=== PATIENT | male | born 1970 | race Caucasian/White ===

== ENCOUNTER 2024-09-21 18:23 | Emergency (ER) | payer MEDICAID, SELFPAY ==
[2024-09-21 18:24] VITALS: BMI 21.7
== END 2024-09-21 20:34 | disposition left against medical advice (07) ==
PROVIDERS: Emergency Provider Emergency Medicine
DX: Z53.21 Procedure and treatment not carried out due to patient leaving prior to being seen by health care provider (principal)

== ENCOUNTER 2024-10-07 21:38 | Emergency (ER) | payer MEDICAID, SELFPAY ==
[2024-10-07 21:39] VITALS: BMI 20.9
--- NOTE | 2024-10-07 22:13 | EDNOTE_ITS ---
Upper Respiratory Inf. RME/HPI General Chief Complaint: Flu Like Symptoms Stated Complaint: COUGH Time Seen by Provider: 10/07/24 21:59 Arrival date/time: 10/07/24 21:38 RME / HPI RME / HPI Narrative: This section includes all my notes and documentations, including HPI, PE, and ED course. Amanuel Narayaann MD HPI: 54yo male with a history of COPD, asthma presents to the ED with 1 week history of worsening cough, productive cough, purulent sputum, and dyspnea. No fever. Has chills and bodyaches. No chest pain. No other complaints. ROS: All negative except as documented in HPI. Physical Exam: General: Alert and oriented. Hacking cough noted. Eyes: Conjunctivae and lids clear. ENT: No nasal congestion. Pharynx normal. TM normal bilaterally. Neck: Supple. Heart: RRR. Lungs: No respiratory distress. Moderately decreased air movement with bilateral rhonchi. Skin: Warm and dry. Neuro: Alert and oriented X 3. I reviewed all diagnostic test results. My interpretation of the chest x-ray is equivocal right sided infiltrates. COVID/influenza negative. At this point, diagnoses include lower respiratory infection. Treatment here included Azithromycin, Ibuprofen, Tylenol with Codeine, Zofran, and Prednisone. Significant improvement noted. Recommend outpatient treatment. Based on my best medical judgment, made decision no further evaluation or treatment indicated at this time. Patient understands and agrees to the discharge instructions customized and printed, see below. Discharge instructions from Dr. Narayanan: --No physical exertion for 3 days to help rest the lungs. ?No smoking or exposure to smoking or pets or dust or cold or humidity. --Zithromax and cefdinir to kill the germs causing the bronchitis. --Prednisone to help decrease the swelling in the airways. --Albuterol 2 puffs every 4-6 hours for 3 days to help keep the airways open. Then as needed for cough or shortness of breath. --See a private doctor next week for recheck if not completely better. --Seek immediate medical care with worsening or with any concerns. Amanuel Narayanan MD Related Data Previous Rx's ?Medication ?Instructions ?Recorded pseudoephed 60 mg-DM 20 mg-guaifen 1 tab PO Q4H PRN fl u symptoms #30 04/06/21 200 mg-acetaminophen 325 mg tablet tabs acetaminophen 325 mg tablet (Aphen) 650 mg (2 x 325 mg ) PO QID PRN 12/13/21 pain #60 tabs albuterol sulfate 90 mcg/actuation 2 puff inhalation Q ID #8.5 grams 09/10/22 aerosol inhaler azithromycin 250 mg tablet See Rx Instructions PO .COM PLEX #6 09/10/22 tabs ibuprofen 800 mg tablet 800 mg PO Q6H PRN pain #14 t abs 02/07/24 albuterol sulfate 90 mcg/actuation 2 puff inhalation Q 6H PRN 10/07/24 aerosol inhaler shortness of breath or wheez ing #8.5 grams azithromycin 500 mg tablet 500 mg PO QDAY 3 days #3 ta bs 10/07/24 (Zithromax TRI-WHITLEY) cefdinir 300 mg capsule 300 mg PO BID #14 caps 10/07 prednisone 20 mg tablet 20 mg PO BID 3 days #6 tabs 10/07/24 Allergies Allergy/AdvReac Type Severity Reaction Status Date / Time aspirin Allergy Severe NOSEBLEED Verified 09/21/24 18:29 Penicillins Allergy Severe swelling Verified 09/21/24 18:29 tetrahydrocannabinol (THC) Allergy Severe Anaphylaxis Verified 09/21/24 18:29 Review of Systems Review of Systems Systems Reviewed: All systems reviewed, normal except as documented Past Medical History Past Medical History CARDIAC: Positive Cardiac Disorders and Angina; Negative Congestive Heart Failure RESPIRATORY: Positive Chronic Obstructive Pulmonary Disease (COPD) and Asthma GENITOURINARY: Negative Renal Disease ENDOCRINE: Positive Endocrine Disorders and Hypoglycemia; Negative Diabetes Mellitus Type 1 or Diabetes Mellitus Type 2 Social History SMOKING STATUS: Current every day smoker ED Exam Narrative Physical exam: As noted in HPI. Course Course Course Narrative: CXR is ordered for determining the etiology of cough. Quality Measures none Orders Category Date Time Status Bedside COVID-19 Antigen Test NOW Care 10/07/24 22:22 Completed Bedside Influenza A&B Antigen Test NOW Care 10/07/24 22:22 Completed XR chest 1V portable Stat Exams 10/07/24 22:22 Completed ACETAMINOPHEN w/COD 300-30 [Tylenol w/Cod #3] Med 10/07/24 22:25 Discontinued 2 tab PO X1 ONE Azithromycin Po [Zithromax PO] Med 10/07/24 23:13 Discontinued 500 mg PO X1 ONE Ibuprofen Tab [Motrin Tab] Med 10/07/24 22:25 Discontinued 600 mg PO X1 ONE Ondansetron Odt [Zofran Odt] Med 10/07/24 22:25 Discontinued 4 mg PO X1 ONE predniSONE Med 10/07/24 22:25 Discontinued 60 mg PO X1 ONE Vital Signs Vital signs: Vital Signs Temperature 99.7 F 10/07/24 22:19 Pulse Rate 115 H 10/07/24 22:19 Respiratory Rate 20 10/07/24 22:19 Blood Pressure 116/70 10/07/24 22:19 Pulse Oximetry (%) 96 10/07/24 22:19 Oxygen Delivery Method Room Air 10/07/24 22:19 Upper Respiratory Infection MDM Narrative MDM Narrative:: Scribe Attestation: 10/07/24 Ashleigh East am scribing for and in the presence of Dr. Narayanan. Patient data External records reviewed:: [facility] previous records (Per chart review, patient was seen here on 02/07/24 for back pain.) Clinical information provided by:: patient Social determinants that could affect healthcare access:: none Patient has the following chronic illnesses:: COPD, asthma How is presenting disease/condition affected by chronic disease/condition?: exacerbated by Evaluation data The following diagnostics were reviewed and interpreted by me:: lab results and radiology exam(s) Lab and/or radiology exams considered but not ordered:: none Interpretation Summary: Lower respiratory infection Medications / Prescriptions Medications or Prescriptions considered but not ordered:: none Medication administrations:: Medication Administration History Discontinued Medications Acetaminophen/Codeine Phosphate (Acetaminophen W/Cod 300-30 Tablet) 2 tab PO X1 ONE Stop: 10/07/24 22:26 Last Admin: 10/07/24 22:39 Dose: 2 tab Documented By: SAHRA Azithromycin (Azithromycin 250 Mg Tablet) 500 mg PO X1 ONE Stop: 10/07/24 23:14 Last Admin: 10/07/24 23:19 Dose: 500 mg Documented By: SAHRA Ibuprofen (Ibuprofen Tab 600 Mg Tablet) 600 mg PO X1 ONE Stop: 10/07/24 22:26 Last Admin: 10/07/24 22:38 Dose: 600 mg Documented By: SAHRA Ondansetron HCl (Ondansetron Odt 4 Mg Tabrap) 4 mg PO X1 ONE; Protocol Stop: 10/07/24 22:26 Last Admin: 10/07/24 22:39 Dose: 4 mg Documented By: SAHRA Prednisone (Prednisone 20 Mg Tablet) 60 mg PO X1 ONE Stop: 10/07/24 22:26 Last Admin: 10/07/24 22:39 Dose: 60 mg Documented By: SAHRA Azithromycin, Ibuprofen, Tylenol with Codeine, Zofran, Prednisone Consultations Consultation(s) initiated? (list below): No Diagnosis Upper Respiratory Differential Diagnosis: upper respiratory infection, otitis media, sinusitis, viral infection, bronchitis, influenza, pharyngitis and other (COVID, pneumonia) Most likely diagnosis given after review of the tests above:: Lower respiratory infection Admission Indicated Admission indicated?: not indicated Explain why admission is indicated or not indicated:: With significant improvement, there was no indication for admission. Admission Request Was there a request for admission?: No Disposition Plan Disposition Plan: Discharge Discharge Attestation Discharge Attestation: The patient and all family members were given an opportunity to ask questions and understood the discharge instructions. Discharge instructions specifically effects, indications for sooner follow up or return to the emergency department, and the expected course of current diagnosis. Patient condition: Stable Discharge Plan Plan Patient Disposition: HOME (Self Care) Prescriptions/Referrals Prescriptions/Med Rec: New prednisone 20 mg tablet 20 mg PO BID 3 Days Qty: 6 0RF Taper: Prednisone Taper 20 mg DAILY for 2 Days and 0 Hour 10 mg DAILY for 2 Days and 0 Hour 5 mg DAILY for 7 Days and 0 Hour albuterol sulfate 90 mcg/actuation HFA aerosol inhaler 2 puff inhalation Q6H PRN (Reason: shortness of breath or wheezing) Qty: 8.5 0RF cefdinir 300 mg capsule 300 mg PO BID Qty: 14 0RF azithromycin [Zithromax TRI-WHITLEY] 500 mg tablet 500 mg PO QDAY 3 Days Qty: 3 0RF No Action [id number]-acetaminophen [id number] mg tablet 1 tab PO Q4H PRN (Reason: flu symptoms) Qty: 30 0RF acetaminophen [Aphen] 325 mg tablet 650 mg PO QID PRN (Reason: pain) Qty: 60 0RF ibuprofen 800 mg tablet 800 mg PO Q6H PRN (Reason: pain) Qty: 14 0RF albuterol sulfate 90 mcg/actuation HFA aerosol inhaler 2 puff inhalation QID Qty: 8.5 0RF azithromycin 250 mg tablet See Rx Instructions .ROUTE .COMPLEX Qty: 6 0RF Rx Instructions: For 250 mg dose pack: take 500 mg today (day 1), then 250 mg for 4 days (days 2-5) Referrals: No Primary/Family,Physician [Primary Care Provider] - In 1 week Problem List Clinical Impression: Lower respiratory infection Patient/Caregiver Discharge Instructions Discharge Activity: activity as tolerated Education Materials: ED Bronchitis, Antibiotics (Child) Additional Instructions: Discharge instructions from Dr. Narayanan: --No physical exertion for 3 days to help rest the lungs. ?No smoking or exposure to smoking or pets or dust or cold or humidity. --Zithromax and cefdinir to kill the germs causing the bronchitis. --Prednisone to help decrease the swelling in the airways. --Albuterol 2 puffs every 4-6 hours for 3 days to help keep the airways open. Then as needed for cough or shortness of breath. --See a private doctor next week for recheck if not completely better. --Seek immediate medical care with worsening or with any concerns. Print Language: Romanian Stand Alone Forms: Shelley Award Info., Patient Portal Info Letter
[2024-10-07 22:19] VITALS: BP 116/70; PULSE 115; RESP 20; TEMP 37.6; O2SAT 96
--- NOTE | 2024-10-07 22:22 | XR_ITS ---
Examination: PA chest single view Technique: Upright PA chest single view Exam date and time: October 07, 2024 1102 hrs. Indications: Coughing shortness of breath beginning 5 days ago. Findings: Early pneumonia right base Normal heart size The osseous structures are intact Impression: Early pneumonia right base
[2024-10-07] MEDS: IBUPROFEN TAB 600 MG TABLET PO (22:38)
[2024-10-07] MEDS: predniSONE 20 MG TABLET 60 MG PO (22:39)
[2024-10-07] MEDS: ACETAMINOPHEN w/COD 300-30 TABLET 2 TAB PO (22:39)
[2024-10-07] MEDS: ONDANSETRON ODT 4 MG TABRAP PO (22:39)
[2024-10-07] MEDS: AZITHROMYCIN 250 MG TABLET 500 MG PO (23:19)
== END 2024-10-07 23:21 | disposition home or self-care (01) ==
PROVIDERS: Emergency Provider Emergency Medicine
DX: J44.0 Chronic obstructive pulmonary disease with (acute) lower respiratory infection (principal)
CPT/HCPCS: 71045; 87400; 87811; 99283; J7512; Q0162; A9270